=== PATIENT | female | born 1995 | race Two or more races ===

== ENCOUNTER → 2019-05-30 | Outpatient (CLI) | payer OTHER ==
--- NOTE | 2019-05-30 16:42 | REP ---
Clinical: Anatomical evaluation. Comparison: None . Findings: Examination demonstrates a single live intrauterine in breech presentation. motion is identified by technologist. Placenta is noted posterior and grade I without evidence for placenta previa or abruption. Amniotic fluid volume is normal. Cervix measures 3.8 cm in length and appears closed. No evidence for nuchal cord. Gestational age by current measurements 19 weeks 6 days with MINO 10/18/2019 . FHR equals 162 beats per minute. BPD 4.6 cm 19 weeks 6 days HC 17.2 cm 19 weeks 5 days AC 14.6 cm 19 weeks 6 days FL 3.4 cm 20 weeks 5 days HL 3.2 cm 20 weeks 5 days HC/AC ratio 1.18 Estimated weight 339 grams ( 58th percentile). Anatomical assessment demonstrates normal structures including cranium, choroid plexus, cavum, cerebellum/posterior fossa, facial features, lungs, four-chamber heart/ventricular outflow tracts, diaphragm, stomach, cord insertion/three-vessel cord, kidneys/bladder, spine, and extremities. Echogenic focus in the left cardiac ventricle likely prominent chordae tendineae. Impression: 1. Single live intrauterine in breech presentation demonstrating appropriate estimated weight. 2. Presumed prominent chordae tendineae. Remainder of the anatomical assessment is complete and normal.
== END ==
LOC: M WHC 09:49
PROVIDERS: ATTEND Advanced Practice Midwife
DX: Z34.92 Encounter for supervision of normal pregnancy, unspecified, second trimester (principal)

== ENCOUNTER → 2019-06-09 | Outpatient (CLI) | payer OTHER | LOC: M PLALAB 09:38 | PROVIDERS: ATTEND Advanced Practice Midwife | DX: Z34.82 Encounter for supervision of other normal pregnancy, second trimester (principal); Z3A.00 Weeks of gestation of pregnancy not specified ==

== ENCOUNTER → 2019-07-20 | Outpatient (REF) | payer OTHER ==
[2019-07-20 17:43] LABS: HEMATOCRIT 40.4 % (36.0-47.0); HEMOGLOBIN 13.2 g/dl (12.0-15.5); MEAN CORPUSCULAR HEMOGLOBIN 28.9 pg (27.0-33.0); MEAN CORPUSCULAR HGB CONC 32.7 g/dl (32.0-36.5); MEAN CORPUSCULAR VOLUME 88.6 fl (80.0-96.0); PLATELET COUNT, AUTOMATED 317 10^3/uL (150-450); RED BLOOD COUNT 4.56 10^6/uL (4.00-5.40); WHITE BLOOD COUNT 8.3 10^3/uL (4.0-10.0)
== END ==
LOC: M PLALAB 13:31
PROVIDERS: ATTEND Advanced Practice Midwife
DX: Z34.92 Encounter for supervision of normal pregnancy, unspecified, second trimester (principal)

== ENCOUNTER 2019-09-28 11:01 | Inpatient (IN) | payer OTHER ==
[~2019-09-28] VITALS: Ht 160 cm; Wt 69.9 kg
[2019-09-28] VITALS (9 sets, daily range): BP systolic 110–139; BP diastolic 80–94
[2019-09-28] MEDS: PRENATAL VITAMINS CHEWABLE TABLET PO SCH (09:00)
[2019-09-28] MEDS ORDERED: ASPI81TA85 PO (12:39)
[2019-09-28] MEDS ORDERED: PRENTAB9 PO (12:39)
[2019-09-28] MEDS ORDERED: LACTATED RINGER'S 1000 ML IV STA (13:00)
[2019-09-28] MEDS ORDERED: LR 1,000 ML IV SCH (13:00)
[2019-09-28] MEDS ORDERED: PENICILLIN G POTASSIUM IV 5 MU in D5W MINI-BAG PLUS 100 ML IV STA (13:00)
[2019-09-28] MEDS ORDERED: OXYTOCIN 30 UNITS IN 0.9% NaCl 500ML IV BAG (J2590) As Ordered ONE (13:17)
[2019-09-28 13:20] LABS: HEMOGLOBIN 12.7 g/dl (12.0-15.5); MEAN CORPUSCULAR HEMOGLOBIN 27.4 pg (27.0-33.0); MEAN CORPUSCULAR HGB CONC 33.4 g/dl (32.0-36.5); MEAN CORPUSCULAR VOLUME 81.9 fl (80.0-96.0); PLATELET COUNT, AUTOMATED 299 10^3/uL (150-450); RED BLOOD COUNT 4.64 10^6/uL (4.00-5.40)
[2019-09-28] MEDS ORDERED: OXYTOCIN DRIP 30 UNITS in IV 1 EA IV SCH (13:38)
--- NOTE | 2019-09-28 13:40 | HPEPDOC ---
Obstetrical History & Physical General Date of Admission Sep 28, 2019 at 12:54 Primary Care Physician: KEVON CHACON CNM History of Present Illness Patient is a 23-year-old female who is a at 36.3 weeks gestation with an MINO of 10/23/19 based off of her first trimester ultrasound. She initiated care in her second trimester with [facility] after transferring in. Her has been complicated by a history of preeclampsia with her last , which she is taking a ASA 81 mg daily for. She also has hypothyroidism, which she is not taking any medication for. She presents with complaints of leaking fluid at 0900 and painful contractions that started when she arrived to the unit. She reports active movement. She denies vaginal bleeding. Chief Complaint: Contractions, pre-term, Active Labor, Rupture of membranes Information Provided By: Patient Age: 23 : 3 Term: 1 Pre-term: 0 Abortions: 0 Livin Care Care: Good Care Dating Final EDC: Oct 23, 2019 Final EDC by: 1st trimester (US) EGA at Admission: 36.3 Antepartum Course Diagnos(e)s hypothyroidism Height (inches): 63 Pre- weight (lbs.): 120 Admission Weight (lbs.): 154 Change in Weight (lbs.): 34 Past Medical History Past Obstetrical History : Past Obstetrical History: Primgravida Date of Delivery: Apr 30, 2017 Gestation: 37 Type of Delivery: Spontaneous Vaginal Del. Sex of : Female ( 6 lbs 12 oz.) Complications: Yes (preeclampsia) TESTER ELECTRONIC SCALE History: Spontaneous Past Medical History Medical History insomnia hypothyroidism Surgical History: Denies/None Family History Significant Family History: Diabetes, Hypertension, Other (hypothyroidism and alcoholism) Social History Marital Status: Family situation: Spouse/partner home Alcohol: Denies Drugs: denies Abuse Violence Screening Have you been hit/kicked/slapp: No Have you been sexually assault: No Allergies Coded Allergies: No Known Allergies (Verified Allergy, Unknown, 09/28/19) Medications Scheduled Aspirin (Aspir 81) 81 Mg Tablet.dr, 1 TAB PO DAILY for pain No.137/Iron/Folic Acd ( Vitamin Tablet) 1 Each Tablet, 1 TAB PO DAILY Physical Examination Physical Examination GENERAL: Alert and oriented times three. BREAST: . ABDOMEN: Gravid and non-tender to touch. FETUS: Is vertex (VTX) by sterile vaginal examination (SVE), fetus is vertex (VTX) by Slim. HEART RATE: Regular rate and rhythm. LUNGS: Clear to auscultation (CTA). PERINEUM: + nitrazine EXTREMITIES: No edema. No clonus. Deep tendon reflexes (DTRs) + 2. Vital Signs/I&O Vital Signs Date Time Temp Pulse Resp B/P (MAP) Pulse Ox O2 Delivery O2 Flow Rate FiO2 09/28/19 11:52 98.7 131 16 121/82 (95) Laboratory Data 24H LABS Laboratory Tests 2 09/28/19 13:08: Nucleated Red Blood Cells % (auto) 0.0 CBC/BMP Laboratory Tests 09/28/19 13:08 Pertinent Laboratoy Data Blood Type: O+ RBC Antibody Screen: Negative HIV: Negative Hepatitis B: Negative Hepatitis C: Negative Rapid Plasma Reagin: Nonreactive Rubella: Immune Chlamydia/Gonorrhea: Negative Group B Streptococcus: Unknown Glucose Tolerance Test: 88 Vaginal Examination Dilation: 7 cm Effacement: 100% Station: 0 Cervical Position: Anterior Presentation: Cephalic presentation Assessment Heart Rate (FHR): 150 Variability: Moderate Accelerations: Positive Decelerations: None Tocometer Contractions: Yes Frequency: regular Multi-drug resistant Organism: No history of MDRO Assessment/Plan Assessment IUP at 36.3 weeks gestation spontaneous rupture active labor Category I FHR tracing GBS unknown Plan Admit to L&D. OOB ad vinh. Diet: clears. Group B Streptococcus (GBS) unknown. Penicillin G to be started per order. Labs and intravenous (IV) per unit protocol. Patient desires to get an epidural. Reviewed that given her stage in labor and that she is ruptured she may not have time to get her epidural but we would try. Lactated Ringers (LR): Bolus 800 mL, then at 125 mL/hr. Anesthesia consult per patient's request. Betamethasone IM injection ordered. Anticipate cervical change and . C-S as appropriate. KEVON CHACON CNM Sep 28, 2019 13:40
[2019-09-28] MEDS ORDERED: IBUPROFEN 600 MG TAB PO PRN (13:45)
[2019-09-28] MEDS ORDERED: ANUSOL HC CREAM 30GM TOP PRN (13:45)
[2019-09-28] MEDS ORDERED: RHOGAM 300 MCG (1500 IU) INJ (J2790) IM SCH (13:45)
[2019-09-28] MEDS ORDERED: METHYLERGONOVINE MALEATE 0.2 MG TAB PO PRN (13:45)
[2019-09-28] MEDS ORDERED: DOCUSATE SODIUM 100 MG CAP PO PRN (13:45)
[2019-09-28] MEDS ORDERED: MEASLES,MUMPS,RUBELLA VACCINE INJ (MMR-II) (90707) SC SCH (13:45)
[2019-09-28] MEDS ORDERED: ACETAMINOPHEN TAB 650MG DOSE (2X325MG) PO PRN (13:45)
[2019-09-28] MEDS ORDERED: IBUPROFEN 800 MG TAB PO PRN (13:45)
[2019-09-28] MEDS ORDERED: DIBUCAINE 1% OINTMENT 30GM TOP PRN (13:45)
[2019-09-28 14:00] LABS: BASO % 0.2 % (0.0-1.0); EOS # 0.1 10^3/uL (0.0-0.5); EOS % 0.5 % (0.0-3.0); LYMPH # 1.2 10^3/uL (1.5-5.0); LYMPH % 11.1 % (24.0-44.0); MONO # 0.5 10^3/uL (0.0-0.8); MONO % 4.4 % (0.0-5.0); NEUTROPHILS # 9.1 10^3/uL (1.5-8.5); NEUTROPHILS % 83.3 % (36.0-66.0)
--- NOTE | 2019-09-28 14:02 | DNPDOC ---
[facility] Delivery Note Delivery Note DATE OF DELIVERY: 09/28/19 at 1313 PREDELIVERY DIAGNOSIS: 36-3/7 weeks' gestation and labor. POST DELIVERY DIAGNOSIS: Delivered. PROCEDURE: Spontaneous vaginal delivery. BUSINESS MANAGEMENT INTERN: Kevon Clark CNM, JENNIFER ANESTHESIA: none. ESTIMATED BLOOD LOSS: 300 mL. FINDINGS: 7 pounds 2 ounces; 3240 grams; male , Score 9/10, delivery. DELIVERY SUMMARY: Patient is a 23-year-old female who is a who presented to L&D in active labor. She reports she spontaneously ruptured clear fluid at 0900. She progressed to fully dilated at 1312 and pushed to a living male in the OA position with restitution to ROT. The anterior shoulder delivered with ease and the corpus immediately followed at 1313. The baby was placed on the maternal abdomen active and crying. The cord was clamped x2 after pulsation ceased and cut by the patient. A 3-vessel cord was noted. The placenta delivered spontaneously and intact at 1317. Uterine hemostasis was achieved via rapid infusion of IV Pitocin and fundal massage. The perineum, vagina, and cervix was inspected and found to be intact. Mom plans to breast feed. They are naming him Derek. All counts of instruments and sponges are correct. Both mom and baby are in stable condition. KEVON CLARK CNM Sep 28, 2019 14:02
[2019-09-28 14:36] LABS: HEPATITIS C VIRUS ABY INDEX 0.3 INDEX (<0.8); HIV 1&2 SCREEN CENTAUR NEGATIVE (NEGATIVE)
[2019-09-29 05:33] VITALS: BP 122/82
[2019-09-29] MEDS: ACETAMINOPHEN 500 MG TAB PO PRN ×2 (06:04→16:14)
[2019-09-29] MEDS: PRENATAL VITAMINS CHEWABLE TABLET PO SCH (08:01)
--- NOTE | 2019-09-29 14:21 | IPNPDOC ---
Progress Note Date of Service: Sep 29, 2019 Day#: 1 Progress Note SUBJECT: Ambulating, voiding and pain is well-controlled. Reports minimal loc hia. +breast feeding OBJECTIVE: VITAL SIGNS: Within normal limits, afebrile. Alert and oriented times three. Abdomen: Fundus firm at U-2. Soft, NTTP. Ext: neg calf tenderness. ASSESSMENT: day #1 status post normal spontaneous vaginal delivery. Recovering in stable condition. PLAN: 1. Continue routine care 2. Discharge plans for tomorrow VS, I&O, 24H, Fishbone Vital Signs/I&O Vital Signs Date Time Temp Pulse Resp B/P (MAP) Pulse Ox O2 Delivery O2 Flow Rate FiO2 09/29/19 05:33 98.0 72 18 122/82 (95) 09/28/19 18:00 98 Room Air I&O- Last 24 Hours up to 6 AM 09/29/19 06:00 Intake Total 1500 ml Output Total 300 ml Balance 1200 ml RADHA CONNELLY MD. Sep 29, 2019 14:21
[2019-09-29] MEDS: SERTRALINE HCL 25 MG TABLET PO SCH (16:14)
[2019-09-29 18:13] VITALS: BP 117/82
[2019-09-30 06:36] VITALS: BP 123/74
[2019-09-30] MEDS ORDERED: SERT25TA21 PO (07:38)
[2019-09-30] MEDS: SERTRALINE HCL 25 MG TABLET PO SCH (09:25)
[2019-09-30] MEDS: PRENATAL VITAMINS CHEWABLE TABLET PO SCH (09:25)
== END 2019-09-30 17:50 | disposition home or self-care (01) | DRG 807 ==
LOC: M LDO 11:01 → M LDI 12:54 → M OBS 16:20
PROVIDERS: ADMIT Advanced Practice Midwife; ATTEND Advanced Practice Midwife
PROC: 10E0XZZ Delivery of Products of Conception, External Approach (ICD-10-PCS; principal; 2019-09-28)
DX: O60.14X0 Preterm labor third trimester with preterm delivery third trimester, not applicable or unspecified (principal); Z37.0 Single live birth; Z3A.36 36 weeks gestation of pregnancy; E03.9 Hypothyroidism, unspecified; O99.284 Endocrine, nutritional and metabolic diseases complicating childbirth

== ENCOUNTER → 2020-03-08 | Outpatient (REF) | payer OTHER ==
[~2020-03-08] MED LIST: ASPI81TA86 PO; PRENTAB9 PO; SERT25TA21 PO
== END ==
LOC: M PLALAB 13:58
PROVIDERS: ATTEND Obstetrics & Gynecology
DX: Z34.91 Encounter for supervision of normal pregnancy, unspecified, first trimester (principal); Z3A.00 Weeks of gestation of pregnancy not specified; Z53.9 Procedure and treatment not carried out, unspecified reason

== ENCOUNTER → 2020-08-21 | Outpatient (CLI) | payer OTHER | LOC: M LABSMTC 10:20 | PROVIDERS: ATTEND Pediatrics | DX: Z11.52 Encounter for screening for COVID-19 (principal) | CPT/HCPCS: C9803; U0003 ==

== ENCOUNTER 2021-05-01 21:45 | Emergency (ER) | payer OTHER ==
[~2021-05-01] VITALS: Ht 160 cm; Wt 56.8 kg
[2021-05-01 22:50] LABS: HEMATOCRIT 42.4 % (36.0-47.0); HEMOGLOBIN 13.9 g/dl (12.0-15.5); MEAN CORPUSCULAR HEMOGLOBIN 28.1 pg (27.0-33.0); MEAN CORPUSCULAR HGB CONC 32.8 g/dl (32.0-36.5); MEAN CORPUSCULAR VOLUME 85.8 fl (80.0-96.0); PLATELET COUNT, AUTOMATED 370 10^3/uL (150-450); RED BLOOD COUNT 4.94 10^6/uL (4.00-5.40); WHITE BLOOD COUNT 7.2 10^3/uL (4.0-10.0)
[2021-05-01 23:02] LABS: AMPHETAMINES LEVEL URINE NEGATIVE (NEGATIVE); BARBITURATES URINE NEGATIVE (NEGATIVE); BENZODIAZEPINES URINE NEGATIVE (NEGATIVE); CANNABINOIDS URINE NEGATIVE (NEGATIVE); COCAINE METABOLITE URINE NEGATIVE (NEGATIVE); METHADONE URINE NEGATIVE (NEGATIVE); OPIATES URINE NEGATIVE (NEGATIVE); PHENCYCLIDINE URINE NEGATIVE (NEGATIVE)
[2021-05-01 23:15] LABS: HCG, SERUM QUALITATIVE NEGATIVE (NEGATIVE)
[2021-05-01 23:23] LABS: ALBUMIN 3.9 GM/DL (3.2-5.2); ALT/SGPT 18 U/L (12-78); BILIRUBIN,DIRECT < 0.1 MG/DL (0.0-0.2); BILIRUBIN,TOTAL 0.2 MG/DL (0.2-1.0); BLOOD UREA NITROGEN 15 MG/DL (7-18); CALCIUM LEVEL 9.3 MG/DL (8.5-10.1); CARBON DIOXIDE LEVEL 27 MEQ/L (21-32); CHLORIDE LEVEL 110 MEQ/L (98-107); CREATININE FOR GFR 0.98 MG/DL (0.55-1.30); ETHYL ALCOHOL (ETHANOL) 0.005 % (0.000-0.010); GLOMERULAR FILTRATION RATE > 60.0 (>60); GLUCOSE, FASTING 91 MG/DL (70-100); POTASSIUM SERUM 4.4 MEQ/L (3.5-5.1); SALICYLATE LEVEL < 1.7 MG/DL (5.0-30.0); SODIUM LEVEL 143 MEQ/L (136-145); TOTAL PROTEIN 7.3 GM/DL (6.4-8.2)
[2021-05-01 23:24] LABS: ACETAMINOPHEN LEVEL < 2.0 UG/ML (10.0-30.0)
[2021-05-01 23:29] LABS: RSV AMPLIFICATION NEGATIVE (NEGATIVE)
[2021-05-02] MEDS ORDERED: HOME MED LIST COMPLETE! XX SCH (01:55)
[2021-05-02 08:56] VITALS: BP 129/80
== END 2021-05-02 09:00 ==
LOC: M ED 21:45
DX: R45.851 Suicidal ideations (principal); F32.A Depression, unspecified